=== PATIENT | female | born 1935 | race Caucasian/White ===

== ENCOUNTER 2021-05-22 11:01 | Emergency (ER) | payer OTHER ==
[~2021-05-22] VITALS: Ht 162.6 cm; Wt 47.6 kg
--- NOTE | 2021-05-22 11:06 | NUR ---
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
--- NOTE | 2021-05-22 11:18 | NUR ---
wheeled patient to ct accompanied by maria de jesus.
--- NOTE | 2021-05-22 13:12 | NUR ---
PT SITTING UP. DENIES CP, SOB, DIZZINESS, N/V, TODD AT THIS TIME. WILL CONT TO MONITOR.
--- NOTE | 2021-05-22 15:40 | NUR ---
[facility] CALLED ETA 60 MINS.
--- NOTE | 2021-05-22 16:15 | NUR ---
Patient discharged to [facility] in stable condition. Written and verbal after care instructions given DIVINE. DIVINE verbalizes understanding of instruction.
[2021-05-22 16:19] VITALS: BP 140/78
== END 2021-05-22 16:20 ==
LOC: ER 11:04
DX: S00.83XA Contusion of other part of head, initial encounter (principal); S13.4XXA Sprain of ligaments of cervical spine, initial encounter; F03.90 Unspecified dementia, unspecified severity, without behavioral disturbance, psychotic disturbance, mood disturbance, and anxiety; F20.9 Schizophrenia, unspecified; I10 Essential (primary) hypertension; I48.91 Unspecified atrial fibrillation; W18.39XA Other fall on same level, initial encounter; Y93.89 Activity, other specified; Y92.89 Other specified places as the place of occurrence of the external cause; Y99.8 Other external cause status
CPT/HCPCS: 70450-TC; 70486-TC; 72125-TC